=== PATIENT | female | born 1955 | race Caucasian/White ===

== ENCOUNTER 2017-08-13 13:12 | Emergency (ER) | payer SELFPAY ==
[2017-08-13] MEDS ORDERED: Ondansetron HCl/PF 4 MG/2 ML Vial ONE (13:45)
[2017-08-13] MEDS ORDERED: cefTRIAXone\\ROCEPHIN 1 GM VIAL ONE (13:45)
[2017-08-13] MEDS ORDERED: Ketorolac Tromethamine 30 MG/ML VIAL ONE (13:46)
== END 2017-08-13 14:32 | disposition home or self-care (01) ==
LOC: MADERS 13:12
DX: R11.2 Nausea with vomiting, unspecified (principal); T36.0X5A Adverse effect of penicillins, initial encounter; J32.9 Chronic sinusitis, unspecified
CPT/HCPCS: 96365; 96375; J0696; J1885; J2405

== ENCOUNTER 2023-11-13 08:31 | Emergency (ER) | payer MEDICARE ==
[2023-11-13] MEDS ORDERED: Lactated Ringer's 1,000 ML ONE (09:02)
[2023-11-13] MEDS ORDERED: Dicyclomine 20 MG/2 ML VIAL ONE (09:02)
[2023-11-13] MEDS ORDERED: Pantoprazole 40 MG VIAL ONE (09:02)
[2023-11-13 09:34] LABS: Hematocrit 42.8 % (36.0-47.0); Hemoglobin 13.5 g/dL (12.0-16.0); INR-International Normal Ratio 1.2; Manual Diff?? YES; Mean Corpuscular HGB CONC 31.4 g/dL (32.0-36.0); Mean Corpuscular Hemoglobin 31.2 pg (27.0-31.0); Mean Corpuscular Volume 99.5 fl (78.0-98.0); Mean Platelet Volume 9.5 fL (7.4-10.4); Platelet Count 189 10x3/uL (130-400); Prothrombin Time 15.6 sec (12.0-14.7); RBC Distribution Width 13.7 % (11.5-14.5); Red Blood Cell (RBC) Count 4.31 mill/uL (4.20-5.40); White Blood Cell (WBC) Count 3.1 10x3/uL (4.8-10.8)
[2023-11-13 09:35] LABS: PTT 33.5 sec (22.9-36.1)
[2023-11-13 09:41] LABS: ALT (SGPT) 10 U/L (8-55); AST (SGOT) 21 U/L (5-34); Albumin 2.9 g/dL (3.4-4.8); Alkaline Phosphatase 63 U/L (40-110); Anion Gap 18 mmol/L (10-20); BUN (Urea Nitrogen) 51 mg/dL (9.8-20.1); Band 12 % (5-11); Bilirubin, Total 0.6 mg/dL (0.2-1.2); CK (CPK) 66 U/L (29-168); Calc. Creatinine Clearance 0 mL/min (70-130); Calcium 9.4 mg/dL (7.8-10.44); Carbon Dioxide 18 mmol/L (23-31); Chloride 98 mmol/L (98-107); Estimated GFR 14; Globulin 2.5 g/dL (2.4-3.5); Glucose 70 mg/dL (80-115); Lipase 658 U/L (8-78); MDiff Complete? YES; Neutrophil 66 % (42-75); Potassium 4.6 mmol/L (3.5-5.1); Protein, Total 5.4 g/dL (5.8-8.1); Sodium 129 mmol/L (136-145)
[2023-11-13 09:42] LABS: Troponin I 0.011 ng/mL (< 0.028)
[2023-11-13 09:44] LABS: Anisocytosis SLIGHT = 6-15 cells (100X) (0-5/hpf); Lymphocytes 12 % (21-51); Monocytes 10 % (0-10)
[2023-11-13 09:45] LABS: Platelet Adequacy Comment Appears Adequate
[2023-11-13] MEDS ORDERED: Thiamine HCl 200 MG/2 ML VIAL ONE (09:57)
[2023-11-13] MEDS ORDERED: Sodium Chloride 0.9% 100 ML ONE (09:58)
[2023-11-13] MEDS ORDERED: Piperacillin/Tazobactam 4.5 GM VIAL ONE (09:58)
[2023-11-13] MEDS ORDERED: Dextrose 5 % And 0.9 % NaCl 1,000 ML ONE (10:00)
[2023-11-13 10:18] LABS: Magnesium 9.1 mg/dL (1.6-2.6)
[2023-11-13] MEDS ORDERED: Furosemide 20 MG (2 mL) VIAL ONE (10:33)
[2023-11-13] MEDS ORDERED: Calcium Gluc 4.6 MEQ/10 ML (100 MG/ML) ONE (10:33)
[2023-11-13] MEDS ORDERED: Sodium Chloride 0.9% 1,000 ML ONE (10:33)
[2023-11-13] MEDS ORDERED: Morphine 4 MG/ML VIAL ONE (10:40)
== END 2023-11-13 11:28 | disposition short-term general hospital (02) ==
LOC: MADERS 08:31
DX: A41.9 Sepsis, unspecified organism (principal); K63.1 Perforation of intestine (nontraumatic); N17.9 Acute kidney failure, unspecified; E87.1 Hypo-osmolality and hyponatremia; K85.90 Acute pancreatitis without necrosis or infection, unspecified; E83.41 Hypermagnesemia; F17.210 Nicotine dependence, cigarettes, uncomplicated
CPT/HCPCS: 36415; 70450; 71045; 72125; 74176; 80053; 82550; 83605; 83690; 83735; 84484; 85025; 85610; 85730; 86850; 86900; 86901; 87040; 93005; 94760; 96361; 96365; 96372; 96374; 96375; C9113; J0612; J1940; J2270; J2543; J3411; J3490; J7042; J7050; J7120